=== PATIENT | female | born 1965 | race Caucasian/White ===

== ENCOUNTER 2018-03-13 06:50 | Day surgery (SDC) | payer MEDICAID ==
[2018-03-13] VITALS (17 sets, daily range): BP systolic 103–150; BP diastolic 51–89
[~2018-03-13] VITALS: Ht 154.9 cm; Wt 109.7 kg
[2018-03-13] MEDS ORDERED: normal saline 1000ml 1,000 ML IV PRN (07:15)
[2018-03-13 08:15] LABS: BASOPHILS # (AUTO) 0.1 X10'3 (0-0.2); BASOPHILS % (AUTO) 0.7 % (0-1); EOSINOPHILS # (AUTO) 1.1 X10'3 (0-0.9); EOSINOPHILS % (AUTO) 13.4 % (0-6); HEMATOCRIT 37.8 % (35.0-45.0); HEMOGLOBIN 11.9 g/dl (12.0-16.0); LYMPHOCYTES # (AUTO) 1.5 X10'3 (1.1-4.8); LYMPHOCYTES % (AUTO) 19.2 % (21-51); MEAN CORPUSCULAR HEMOGLOBIN 25.2 PG (27.0-31.0); MEAN CORPUSCULAR HGB CONC 31.5 % (33.0-36.5); MEAN PLATELET VOLUME 9.2 FL (7.4-10.4); MONOCYTES # (AUTO) 0.5 X10'3 (0-0.9); MONOCYTES % (AUTO) 6.6 % (2-12); NEUTROPHILS # (AUTO) 4.7 X10'3 (1.8-7.7); NEUTROPHILS % (AUTO) 60.1 % (42-75); PLATELET COUNT 276 X10'3 (140-440); RED BLOOD COUNT 4.73 X10'6 (4.20-5.60); WHITE BLOOD COUNT 7.9 X10'3 (4.5-11.0)
[2018-03-13] MEDS ORDERED: normal saline 1000ml 1,000 ML IV SCH ×2 (08:19→08:35)
[2018-03-13] MEDS ORDERED: midazolam 2 mg/2 ml injection IV PRN (08:20)
[2018-03-13] MEDS ORDERED: fentaNYL/PF 50MCG/1 ML 2ML syringe IV PRN (08:20)
[2018-03-13] MEDS ORDERED: CYCL-1 PO (08:28)
[2018-03-13] MEDS ORDERED: DOCU-28 PO (08:28)
[2018-03-13] MEDS ORDERED: ACET-75 PO (08:28)
[2018-03-13] MEDS ORDERED: SUMA50TA PO (08:28)
[2018-03-13] MEDS ORDERED: PSYL0.524 PO (08:28)
[2018-03-13] MEDS ORDERED: FURO20TA4 PO (08:28)
[2018-03-13] MEDS ORDERED: DIPH50CA3 PO (08:28)
[2018-03-13] MEDS ORDERED: LEVO50TA8 PO (08:28)
[2018-03-13] MEDS ORDERED: ONDA4TAB9 PO (08:28)
[2018-03-13] MEDS ORDERED: OMEP20TA23 PO (08:28)
[2018-03-13] MEDS ORDERED: FAMO20TA8 PO (08:28)
[2018-03-13] MEDS ORDERED: TERB250T4 PO (08:28)
[2018-03-13] MEDS ORDERED: SIMV40TA4 PO (08:28)
[2018-03-13] MEDS ORDERED: CHOL10002 PO (08:28)
[2018-03-13] MEDS ORDERED: NORT10CA81 PO (08:28)
[2018-03-13] MEDS ORDERED: BACL10TA PO (08:28)
[2018-03-13] MEDS ORDERED: GLIM1TAB46 PO (08:28)
[2018-03-13] MEDS ORDERED: OXYB5TAB11 PO (08:28)
[2018-03-13] MEDS ORDERED: CALC-491 PO (08:28)
[2018-03-13] MEDS ORDERED: AMIT100T2 PO (08:28)
[2018-03-13] MEDS ORDERED: GABA600T2 PO (08:28)
[2018-03-13] MEDS ORDERED: fentaNYL/PF 50MCG/1 ML 2ML syringe ONE (08:54)
[2018-03-13] MEDS ORDERED: midazolam 2 mg/2 ml injection ONE (08:54)
[2018-03-13] MEDS ORDERED: pneumococcal 23-VAL P-sac vacc 25 mcg/0.5ml vial IMVAC ONE (08:55)
== END 2018-03-13 12:45 | disposition home or self-care (01) ==
LOC: SSTAY O 06:50
PROVIDERS: ATTEND Radiology Diagnostic Radiology
DX: C25.2 Malignant neoplasm of tail of pancreas (principal); E11.9 Type 2 diabetes mellitus without complications; E03.9 Hypothyroidism, unspecified; G43.909 Migraine, unspecified, not intractable, without status migrainosus; E66.9 Obesity, unspecified; M54.16 Radiculopathy, lumbar region; G47.33 Obstructive sleep apnea (adult) (pediatric); K21.9 Gastro-esophageal reflux disease without esophagitis; G89.29 Other chronic pain; F32.9 Major depressive disorder, single episode, unspecified; Z96.653 Presence of artificial knee joint, bilateral; Z79.891 Long term (current) use of opiate analgesic; Z68.42 Body mass index [BMI] 45.0-49.9, adult; Z79.899 Other long term (current) drug therapy; Z98.890 Other specified postprocedural states
CPT/HCPCS: 10022; 36415; 77012; 82948; 85025; 99152; 99153; J2250; J3010; J7030; 49180

== ENCOUNTER 2018-07-09 10:09 | Emergency (ER) | payer MEDICAID ==
[~2018-07-09] VITALS: Ht 154.9 cm; Wt 89.8 kg
[~2018-07-09 10:09] MED LIST: ACET-75 PO; AMIT100T2 PO; BACL10TA PO; CALC-491 PO; CHOL10002 PO; CYCL-1 PO; DIPH50CA3 PO; DOCU-28 PO; FAMO20TA8 PO; FURO20TA4 PO; GABA600T2 PO; GLIM1TAB46 PO; LEVO50TA8 PO; NORT10CA81 PO; OMEP20TA23 PO; ONDA4TAB9 PO; OXYB5TAB11 PO; PSYL0.524 PO; SIMV40TA4 PO; SUMA50TA PO; TERB250T4 PO
[2018-07-09 10:11] VITALS: BP 134/67
[2018-07-09] MEDS ORDERED: CELE-193 PO (10:40)
[2018-07-09] MEDS ORDERED: celeCOXIB 100mg capsule PO ONE (10:45)
== END 2018-07-09 11:05 | disposition home or self-care (01) ==
LOC: ER 10:09
DX: M25.512 Pain in left shoulder (principal); E11.9 Type 2 diabetes mellitus without complications; G89.29 Other chronic pain; Z85.05 Personal history of malignant neoplasm of liver; Z85.07 Personal history of malignant neoplasm of pancreas; Z79.899 Other long term (current) drug therapy
CPT/HCPCS: 99283; 99284

== ENCOUNTER 2018-08-26 11:43 | Emergency (ER) | payer MEDICAID ==
[~2018-08-26] VITALS: Ht 152.4 cm; Wt 98.0 kg
[2018-08-26 12:43] LABS: BASOPHILS # (AUTO) 0.1 X10'3 (0-0.2); BASOPHILS % (AUTO) 0.6 % (0-1); EOSINOPHILS # (AUTO) 0.2 X10'3 (0-0.9); EOSINOPHILS % (AUTO) 1.6 % (0-6); HEMATOCRIT 40.5 % (35.0-45.0); HEMOGLOBIN 13.2 g/dl (12.0-16.0); LYMPHOCYTES # (AUTO) 2.7 X10'3 (1.1-4.8); LYMPHOCYTES % (AUTO) 26.7 % (21-51); MEAN CORPUSCULAR HEMOGLOBIN 28.5 PG (27.0-31.0); MEAN CORPUSCULAR HGB CONC 32.5 % (33.0-36.5); MEAN CORPUSCULAR VOLUME 87.7 FL (78-98); MEAN PLATELET VOLUME 10.6 FL (7.4-10.4); MONOCYTES # (AUTO) 0.8 X10'3 (0-0.9); MONOCYTES % (AUTO) 7.9 % (2-12); NEUTROPHILS # (AUTO) 6.4 X10'3 (1.8-7.7); NEUTROPHILS % (AUTO) 63.2 % (42-75); PLATELET COUNT 196 X10'3 (140-440); RED BLOOD COUNT 4.62 X10'6 (4.20-5.60); WHITE BLOOD COUNT 10.1 X10'3 (4.5-11.0)
[2018-08-26 12:58] LABS: ALANINE AMINOTRANSFERASE 41 U/L (12-78); ALBUMIN 3.1 G/DL (3.4-5.0); ALBUMIN/GLOBULIN RATIO 0.8 (1.1-1.5); ALKALINE PHOSPHATASE 189 IU/L (46-116); ANION GAP 8 (8-16); ASPARTATE AMINO TRANSFERASE 20 U/L (10-37); BILIRUBIN,TOTAL 0.2 MG/DL (0.1-1.0); BLOOD UREA NITROGEN 12 MG/DL (7-18); BUN/CREATININE RATIO 11.3 (6.6-38.0); CALCIUM 9.6 MG/DL (8.5-10.1); CHLORIDE 102 MMOL/L (99-107); CREATININE 1.06 MG/DL (0.40-0.90); GLUCOSE 75 MG/DL (70-104); SODIUM 141 MMOL/L (135-145); TOTAL CARBON DIOXIDE 30.8 MMOL/L (24-32); TOTAL PROTEIN 7.2 G/DL (6.4-8.2); eGFR 54 ML/MIN
[2018-08-26 13:01] LABS: LARGE PLATELETS FEW; PLATELET ESTIMATE NORMAL
[2018-08-26 13:55] VITALS: BP 121/73
== END 2018-08-26 14:12 | disposition home or self-care (01) ==
LOC: ER 11:43
DX: R25.1 Tremor, unspecified (principal); R22.0 Localized swelling, mass and lump, head; G89.29 Other chronic pain; E11.9 Type 2 diabetes mellitus without complications; Z79.899 Other long term (current) drug therapy
CPT/HCPCS: 36415; 70450; 71046; 80053; 85025; 85610; 99284